=== PATIENT | female | born 1930 | race Caucasian/White ===

== ENCOUNTER 2017-03-18 18:47 | Inpatient (IN) | payer MEDICARE, OTHER ==
[~2017-03-18] VITALS: Ht 170.2 cm; Wt 71.2 kg
[2017-03-18] MEDS ORDERED: SUCCINYLCHOLINE CHLORIDE 20 MG/ML 10ML VIAL IV ONE ×2 (19:27→19:30)
[2017-03-18] MEDS ORDERED: ETOMIDATE (2MG/ML) 20ML VIAL IV ONE ×2 (19:27→19:30)
[2017-03-18 19:30] LABS: Albumin 2.8 g/dL (3.4-5.0); Calcium 8.4 mg/dL (8.5-10.1); Potassium 4.3 mmol/L (3.5-5.1)
[2017-03-18 19:32] LABS: BUN/Creatinine Ratio 15.8
[2017-03-18 19:36] LABS: Basophils # (auto) 0 uL; Basophils % (auto) 0.3 % (0.0-2.0); CONDITION Y; Eosinophils # (auto) 0.2 uL; Eosinophils % (auto) 2.2 % (0.0-7.0); Hematocrit 32.1 % (36.0-46.0); Hemoglobin 10.9 g/dL (12.2-16.2); Lymphocytes # (auto) 0.7 uL; Lymphocytes % (auto) 8.4 % (10.0-50.0); Mean Corpuscular Hemoglobin 32.2 pg (28.0-32.0); Mean Corpuscular Hgb Conc. 33.8 g/dL (32.0-36.0); Mean Corpuscular Volume 95.1 fL (80.0-100.0); Mean Platelet Volume 7.5 fL (7.4-10.4); Monocytes # (auto) 0.8 uL; Monocytes % (auto) 8.9 % (0.0-12.0); Neutrophils % (auto) 80.2 % (37.0-80.0); Platelet Count (auto) 407 10^3/uL (140-450); Red Cell Distribution Width 15.3 % (11.6-16.0); White Blood Cell 8.8 10^3/uL (4.4-10.8)
[2017-03-18 19:45] LABS: Bilirubin, Total 0.4 mg/dL (0.2-1.0); Total Protein 6.5 g/dL (6.4-8.2)
[2017-03-18 20:22] LABS: Lactic Acid w/Reflex 2.1 mmol/L (0.4-2.0)
[2017-03-18 20:24] LABS: Urine Bilirubin Negative (Negative); Urine Blood Negative /uL (Negative); Urine Color Yellow (Yellow); Urine Glucose Normal (Normal); Urine Ketone Negative (Negative); Urine Nitrite Negative (Negative); Urine RBC 1 /hpf (0 - 4); Urine Squamous Epithelial Cell FEW /hpf (<5); Urine Urobilinogen Normal (Negative); Urine pH 6.5 (5.0-8.0)
[2017-03-18 20:32] LABS: Magnesium 2.1 mg/dL (1.6-2.6)
[2017-03-18 20:38] LABS: INR 1.22 (0.9-1.15); Partial Thromboplastin Time 33.2 sec (22.64-33.71)
[2017-03-18 20:39] LABS: Prothrombin Time 13.3 sec (9.37-12.3); REFLEX LACTIC ACID YES OR NO YES
[2017-03-18 20:57] LABS: B-Type Natriuretic Peptide 237.47 pg/mL (0-100)
[2017-03-18] MEDS: ASPirin 300 MG RECTAL SUPP PR ONE ×2 (21:00→21:25)
[2017-03-18 21:09] LABS: Temperature: 23.7 C (20.0-25.0)
[2017-03-18] MEDS: SODIUM CHLORIDE 0.9% 1,000 ML IV SCH ×2 (22:15→22:34)
[2017-03-18] MEDS ORDERED: NITROGLYCERIN 0.4 MG SL TAB SL PRN (22:30)
[2017-03-18] MEDS ORDERED: hydrALAZINE HCL 20 MG/ML VL IV PRN (22:30)
[2017-03-18] MEDS ORDERED: DEXTROSE (50%) 50ML SYRG IV PRN (22:30)
[2017-03-18] MEDS ORDERED: MORPHINE SULF INJ 2 MG/ML SYRINGE 1ML IV PRN (22:30)
[2017-03-19] MEDS: ACCU-CHEK COMFORT CURVE STRIP VI SCH ×4 (00:05→17:38)
[2017-03-19] MEDS: InsuLIN REG 1unit/0.01ml Soln (100units/ml) SC SCH ×4 (00:05→17:38)
[2017-03-19 01:46] LABS: Albumin 2.6 g/dL (3.4-5.0); BUN/Creatinine Ratio 17.1; Bilirubin, Total 0.4 mg/dL (0.2-1.0); Calcium 8.4 mg/dL (8.5-10.1); Total Protein 6.1 g/dL (6.4-8.2)
[2017-03-19] MEDS ORDERED: ONDANSETRON HCL 4 MG/2 ML VIAL ONE (05:31)
[2017-03-19] MEDS ORDERED: ONDANSETRON HCL 4 MG/2 ML VIAL IV PRN (05:45)
[2017-03-19] MEDS: FUROSEMIDE 20 MG/2 ML VIAL IV SCH ×2 (06:11→18:04)
[2017-03-19 06:36] LABS: Basophils # (auto) 0 uL; Basophils % (auto) 0.4 % (0.0-2.0); CONDITION Y; Eosinophils # (auto) 0.1 uL; Eosinophils % (auto) 1.2 % (0.0-7.0); Hematocrit 29.2 % (36.0-46.0); Lymphocytes # (auto) 0.8 uL; Lymphocytes % (auto) 12.6 % (10.0-50.0); Mean Corpuscular Hemoglobin 32.3 pg (28.0-32.0); Mean Corpuscular Hgb Conc. 34.3 g/dL (32.0-36.0); Mean Corpuscular Volume 94.2 fL (80.0-100.0); Mean Platelet Volume 7.6 fL (7.4-10.4); Monocytes # (auto) 0.6 uL; Neutrophils # (auto) 4.7 uL; Neutrophils % (auto) 75.8 % (37.0-80.0); Platelet Count (auto) 338 10^3/uL (140-450); Red Cell Distribution Width 14.7 % (11.6-16.0); White Blood Cell 6.2 10^3/uL (4.4-10.8)
[2017-03-19] MEDS: ASPirin 300 MG RECTAL SUPP PR SCH (10:00)
[2017-03-19] MEDS ORDERED: PANTOPRAZOLE SODIUM 40 MG/10 ML VIAL IV SCH (10:00)
[2017-03-19] MEDS ORDERED: FERR27TA2 PO (10:26)
[2017-03-19] MEDS ORDERED: OXYB5SYP4 PO (10:26)
[2017-03-19] MEDS ORDERED: VITACAP OR (10:26)
[2017-03-19] MEDS ORDERED: CAR125T PO (10:26)
[2017-03-19] MEDS ORDERED: HYDR100T9 PO (10:26)
[2017-03-19] MEDS ORDERED: APIX2.5T OR (10:26)
[2017-03-19] MEDS ORDERED: FAM20T PO (10:26)
[2017-03-19] MEDS ORDERED: FOLI5CAP PO (10:26)
[2017-03-19] MEDS ORDERED: DEXL60CA3 PO (10:26)
[2017-03-19] MEDS ORDERED: ALPR0.25 PO (10:26)
[2017-03-19] MEDS ORDERED: MED20T PO (10:26)
[2017-03-19] MEDS ORDERED: CYAN100L PO (10:26)
[2017-03-19] MEDS ORDERED: FURO40TA4 PO (10:26)
[2017-03-19] MEDS ORDERED: AML5T PO (10:26)
[2017-03-19] MEDS ORDERED: POTA10IN PO (10:26)
[2017-03-19] MEDS ORDERED: GLIP-116 PO (10:27)
[2017-03-19] MEDS: ENOXAPARIN SOD 30 MG/0.3 ML SYRINGE SC SCH (10:30)
[2017-03-19] MEDS: FAMOTIDINE (10MG/ML) 2ML VL IV SCH ×2 (10:30→21:35)
[2017-03-19 22:00] VITALS: BP 120/54
[2017-03-19] MEDS: SODIUM CHLORIDE 0.9% 1,000 ML IV SCH (23:20)
[2017-03-20] MEDS: ACCU-CHEK COMFORT CURVE STRIP VI SCH ×5 (00:18→23:34)
[2017-03-20] MEDS: InsuLIN REG 1unit/0.01ml Soln (100units/ml) SC SCH ×5 (00:23→23:34)
[2017-03-20 05:00] VITALS: BP 131/69
[2017-03-20] MEDS: FUROSEMIDE 20 MG/2 ML VIAL IV SCH ×2 (06:20→18:02)
[2017-03-20 09:15] VITALS: BP 107/63
[2017-03-20] MEDS: FAMOTIDINE (10MG/ML) 2ML VL IV SCH ×2 (10:23→21:55)
[2017-03-20] MEDS: ENOXAPARIN SOD 30 MG/0.3 ML SYRINGE SC SCH (10:23)
[2017-03-20] MEDS: ASPirin 300 MG RECTAL SUPP PR SCH (10:23)
[2017-03-20] MEDS: SODIUM CHLORIDE 0.9% 1,000 ML IV SCH (11:50)
[2017-03-20 13:00] VITALS: BP 120/60
[2017-03-20 17:18] VITALS: BP 120/75
[2017-03-20 22:00] VITALS: BP 135/66
[2017-03-21] MEDS: SODIUM CHLORIDE 0.9% 1,000 ML IV SCH ×2 (00:20→11:42)
[2017-03-21 05:00] VITALS: BP 138/76
[2017-03-21] MEDS: FUROSEMIDE 20 MG/2 ML VIAL IV SCH ×2 (05:39→17:33)
[2017-03-21] MEDS: ACCU-CHEK COMFORT CURVE STRIP VI SCH ×3 (05:43→17:33)
[2017-03-21] MEDS: InsuLIN REG 1unit/0.01ml Soln (100units/ml) SC SCH ×3 (06:04→17:39)
[2017-03-21 06:36] LABS: Basophils # (auto) 0 uL; Basophils % (auto) 0.4 % (0.0-2.0); CONDITION Y; Eosinophils # (auto) 0.2 uL; Eosinophils % (auto) 2.9 % (0.0-7.0); Hematocrit 36.6 % (36.0-46.0); Hemoglobin 12.4 g/dL (12.2-16.2); Lymphocytes # (auto) 0.8 uL; Lymphocytes % (auto) 11.9 % (10.0-50.0); Mean Corpuscular Hemoglobin 32.1 pg (28.0-32.0); Mean Corpuscular Hgb Conc. 33.8 g/dL (32.0-36.0); Mean Platelet Volume 7.4 fL (7.4-10.4); Monocytes # (auto) 0.9 uL; Neutrophils % (auto) 71.8 % (37.0-80.0); Platelet Count (auto) 370 10^3/uL (140-450); White Blood Cell 6.9 10^3/uL (4.4-10.8)
[2017-03-21 07:04] LABS: BUN/Creatinine Ratio 12.4; Calcium 9.4 mg/dL (8.5-10.1)
[2017-03-21 07:25] LABS: Potassium 3.7 mmol/L (3.5-5.1)
[2017-03-21 08:00] VITALS: BP 136/77
[2017-03-21] MEDS: FAMOTIDINE (10MG/ML) 2ML VL IV SCH ×2 (09:22→22:15)
[2017-03-21] MEDS: ENOXAPARIN SOD 30 MG/0.3 ML SYRINGE SC SCH (09:22)
[2017-03-21] MEDS ORDERED: POTA10TA51 PO (09:29)
[2017-03-21] MEDS: ASPirin 300 MG RECTAL SUPP PR SCH (09:32)
[2017-03-21] MEDS: LEVOFLOXACIN 500MG 100 ML IV SCH (11:41)
[2017-03-21 13:00] VITALS: BP 120/69
[2017-03-21 14:45] LABS: Urine Bilirubin Negative (Negative); Urine Color Yellow (Yellow); Urine Glucose Normal (Normal); Urine Ketone Negative (Negative); Urine Mucus FEW (None Seen); Urine Nitrite Negative (Negative); Urine RBC 8 /hpf (0 - 4); Urine Squamous Epithelial Cell FEW /hpf (<5); Urine Urobilinogen Normal (Negative)
[2017-03-21 14:51] LABS: Urine Blood 1+ /uL (Negative)
[2017-03-21 17:16] VITALS: BP 121/65
[2017-03-21 22:00] VITALS: BP 115/60
[2017-03-22] VITALS (7 sets, daily range): BP systolic 101–148; BP diastolic 46–78
[2017-03-22] MEDS: ACCU-CHEK COMFORT CURVE STRIP VI SCH ×4 (00:21→17:43)
[2017-03-22] MEDS: InsuLIN REG 1unit/0.01ml Soln (100units/ml) SC SCH ×4 (00:21→17:43)
[2017-03-22] MEDS: SODIUM CHLORIDE 0.9% 1,000 ML IV SCH ×2 (00:50→13:40)
[2017-03-22] MEDS: FUROSEMIDE 20 MG/2 ML VIAL IV SCH ×2 (06:12→17:09)
[2017-03-22] MEDS: FAMOTIDINE (10MG/ML) 2ML VL IV SCH ×2 (10:48→22:00)
[2017-03-22] MEDS: ENOXAPARIN SOD 30 MG/0.3 ML SYRINGE SC SCH (10:48)
[2017-03-22] MEDS: ASPirin 300 MG RECTAL SUPP PR SCH (10:49)
[2017-03-22] MEDS: LEVOFLOXACIN 500MG 100 ML IV SCH (10:49)
[2017-03-22] MEDS ORDERED: FURO40TA PO (13:43)
[2017-03-22] MEDS ORDERED: LEVO-28 PO (13:43)
[2017-03-22] MEDS ORDERED: CARVEDILOL 12.5 MG TAB PO ONE (18:00)
[2017-03-22] MEDS ORDERED: APIXABAN 2.5 MG TAB PO SCH (22:00)
== END 2017-03-22 23:01 | DRG 280 ==
LOC: EDBD 18:47 → ER 18:51 → TELE 18:52 → TELE-WESTW 03-19 09:18
PROVIDERS: ADMIT Family Medicine; ATTEND Internal Medicine
DX: I21.4 Non-ST elevation (NSTEMI) myocardial infarction (principal); G93.41 Metabolic encephalopathy; E44.0 Moderate protein-calorie malnutrition; E87.0 Hyperosmolality and hypernatremia; I50.32 Chronic diastolic (congestive) heart failure; R78.81 Bacteremia; N39.0 Urinary tract infection, site not specified; E11.65 Type 2 diabetes mellitus with hyperglycemia; B95.62 Methicillin resistant Staphylococcus aureus infection as the cause of diseases classified elsewhere; I48.2 Chronic atrial fibrillation; F03.90 Unspecified dementia, unspecified severity, without behavioral disturbance, psychotic disturbance, mood disturbance, and anxiety; I11.0 Hypertensive heart disease with heart failure; E03.9 Hypothyroidism, unspecified; J45.909 Unspecified asthma, uncomplicated; I25.10 Atherosclerotic heart disease of native coronary artery without angina pectoris; D63.8 Anemia in other chronic diseases classified elsewhere; R26.9 Unspecified abnormalities of gait and mobility; K21.9 Gastro-esophageal reflux disease without esophagitis; Z79.01 Long term (current) use of anticoagulants; Z79.84 Long term (current) use of oral hypoglycemic drugs; Z79.899 Other long term (current) drug therapy; Z68.24 Body mass index [BMI] 24.0-24.9, adult; Z91.041 Radiographic dye allergy status; Z85.038 Personal history of other malignant neoplasm of large intestine; Z85.43 Personal history of malignant neoplasm of ovary; Z85.841 Personal history of malignant neoplasm of brain; Z86.73 Personal history of transient ischemic attack (TIA), and cerebral infarction without residual deficits; Z95.1 Presence of aortocoronary bypass graft; Z95.5 Presence of coronary angioplasty implant and graft
CPT/HCPCS: 36415; 51702; 70450; 71010; 80048; 80053; 80061; 80307; 80320; 81001; 82962; 83036; 83605; 83735; 83880; 84484; 85025; 85379; 85610; 85730; 87040; 87077; 87081; 87086; 87088; 87147; 87186; 93005; 93306; 95819; 96361; 96374; 97116; 97163; 97530; 99291; J0330; J1815; J1956; J2405; J3490